=== PATIENT | male | born 1980 ===

== ENCOUNTER 2020-01-22 20:51 | Outpatient (REF) | payer OTHER, SELFPAY ==
[2020-01-22 21:28] LABS: COVID-19 Test Negative (Negative); IDNOW Serial# 9DD0AD1C
== END 2020-01-22 20:52 | disposition home or self-care (01) ==
LOC: HO.EMPCOV 20:51
PROVIDERS: Visit Provider Internal Medicine
DX: Z20.828 Contact with and (suspected) exposure to other viral communicable diseases (principal)
CPT/HCPCS: 87635

== ENCOUNTER 2020-01-26 22:35 | Outpatient (REF) | payer OTHER, SELFPAY ==
[2020-01-26 23:17] LABS: COVID-19 Test Positive (Negative)
== END 2020-01-26 22:36 | disposition home or self-care (01) ==
LOC: HO.EMPCOV 22:35
PROVIDERS: Visit Provider Internal Medicine
DX: Z20.828 Contact with and (suspected) exposure to other viral communicable diseases (principal)
CPT/HCPCS: 87635

== ENCOUNTER 2020-05-08 15:26 | Outpatient (REF) | payer OTHER, SELFPAY ==
--- NOTE | ~2020-05-08 | XR_ITS ---
EXAMINATION: XR LUMBOSACRAL SPINE CLINICAL INFORMATION: Lower back pain COMPARISON: None TECHNIQUE: Three views of the lumbosacral spine. FINDINGS: No fracture or subluxation. Vertebral body height and alignment is maintained. Disc spaces are maintained. The sacroiliac joints are symmetric. The sacrum appears intact. The visualized bowel gas pattern is unremarkable. XR/XR lumbar spine 2-3V IMPRESSION: Normal appearance of the lumbar spine.
== END 2020-05-08 15:27 | disposition home or self-care (01) ==
LOC: HO.HMGCX 15:26
PROVIDERS: PCP Internal Medicine; Visit Provider Internal Medicine
DX: M54.5 Low back pain (principal); F41.9 Anxiety disorder, unspecified
CPT/HCPCS: 72100

== ENCOUNTER 2021-06-12 11:43 | Outpatient (REF) | payer OTHER, SELFPAY ==
[2021-06-12 13:49] LABS: Hematocrit 43.3 % (42.0-52.0); Hemoglobin 14.3 g/dl (14.0-18.0); Mean Corpuscular Hemoglobin 29.8 pg (27.0-33.0); Mean Corpuscular Volume 90.2 fL (80.0-98.0); Mean Platelet Volume 9.4 fL (9.4-12.4); Platelet Count 260 X10*3/uL (160-400); Red Cell Distribution Width 12.8 % (11.0-16.0); White Blood Count 6.4 X10*3/uL (4.8-10.8)
[2021-06-12 13:57] LABS: Alanine Aminotransferase 17 U/L (0-40); Albumin Level 4.3 g/dL (3.5-5.0); Alkaline Phosphatase 51 U/L (39-117); Anion Gap 11 (12-20); Aspartate Amino Transferase 16 U/L (5-37); Bilirubin Total 0.3 mg/dL (0.0-1.0); Blood Urea Nitrogen 25 mg/dL (9-16); Calcium 9.2 mg/dL (8.4-10.2); Carbon Dioxide 28 mmol/L (22-29); Chloride 105 mmol/L (96-108); Cholesterol 180 mg/dL; Estimated Glomerular Filt Rate > 60; Glucose Fasting 87 mg/dL (60-99); HDL Cholesterol 34 mg/dL; LDL Cholesterol Calculated 124 mg/dl; Potassium 4.3 mmol/L (3.3-5.1); Sodium 140 mmol/L (135-145); Total Protein 7.3 g/dL (6.5-8.0); Triglycerides 111 mg/dL
[2021-06-12 14:18] LABS: TSH reflex Free T4 1.39 uIU/mL (0.32-4.0)
== END 2021-06-12 11:44 | disposition home or self-care (01) ==
LOC: HO.HMGCLDS 11:43
PROVIDERS: Visit Provider Internal Medicine
DX: Z00.00 Encounter for general adult medical examination without abnormal findings (principal); K21.9 Gastro-esophageal reflux disease without esophagitis
CPT/HCPCS: 36415; 80053; 80061; 84443; 85027

== ENCOUNTER 2021-10-01 13:28 | Outpatient (REF) | payer OTHER, SELFPAY ==
[2021-10-01 16:26] LABS: Appearance Urine Cloudy; Color Urine Yellow; Glucose Urine UA Negative (Negative); Leukocyte Esterase Urine Negative (Negative); Nitrite Urine Negative (Negative); Urine Blood Negative (Negative); Urine Ketones Negative (Negative); Urine Protein Negative (Neg-Trace)
== END 2021-10-01 13:29 | disposition home or self-care (01) ==
LOC: HO.HMGCLDS 13:28
PROVIDERS: PCP Internal Medicine; Visit Provider Internal Medicine
DX: Z12.5 Encounter for screening for malignant neoplasm of prostate (principal); R35.0 Frequency of micturition
CPT/HCPCS: 36415; 81003; 84153

== ENCOUNTER 2022-10-30 09:07 | Outpatient (AMB) | payer OTHER, SELFPAY ==
--- NOTE | 2022-10-30 09:11 | A.OFFPC_ITS ---
Vital Signs 10/30/22 09:15 Height 5 ft 9 in Weight 230 lb BMI 34.0 BP 114/74 Blood Pressure Location Lt brachial Position Sitting Pulse 82 Pulse Source Pulse Oximeter Pulse Oximetry (%) 96 Oxygen Delivery Method Room Air Intake Visit Reasons: Annual PE Intake Note: Pt is here today for PE. Pt states that he has lumps on his arms that he would like to have doctor look at. Allergies Cephalosporins [CEPHALOSPORINS] Allergy (Unknown, Verified 10/30/22 09:17) Hives Medication List - Last Reconciled 10/30/22 by Audra Eid MD metronidazole 1% 1 appl topical BEDTIME omeprazole 20 mg PO DAILY Tobacco use date assessed: 10/30/22 Dental Screening Dental Screen Date: 10/30/22 Did you have a dental visit in the last 12 months?: Yes Did you have a dental problem in the last 6 months where you did not have access to dental care?: No Was dental information given to patient?: Patient has dentist HPI Annual PE HPI Details Pt presents for PE. Pt and his are expecting a baby in January. 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 [facility] Medical History Annual physical exam Anxiety Foot pain, bilateral GERD (gastroesophageal reflux disease) Lip lesion Lower back pain Multiple lipomas Sleep apnea Surgical History History of arthroscopic knee surgery Family History (Updated 10/30/22 @ 09:22 by RICH Grissom) Father HTN (hypertension) Diabetes mellitus Mother Asthma Mental health disorder Maternal Grandfather No problems noted. 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 46840 - PHQ-9 Billing: Patient declined-do not bill Source: Developed by Drs. Lee Lo, Paulette Colon, Min Chacko and colleagues, with an educational mayte from [employer]. Thrive Questionnaire Date Thrive assessed: 10/30/22 What is your living situation today?: I choose not to answer this question Within the past 12 months, did the food you bought not last and you didn't have the money to get more?: I choose not to answer this question Within the past 12 months, did you worry whether your food would run out before you got money to buy more?: I choose not to answer this question Do you have trouble paying for medicines?: I choose not to answer this question Do you have trouble getting transportation to medical appointments?: I choose not to answer this question Do you have trouble paying your heating and electricity bill?: I choose not to answer this question Do you have trouble taking care of your child, family member or friend?: I choose not to answer this question Do you have trouble with day-to-day activities such as bathing, preparing meals, shopping, managing finances, etc.?: I choose not to answer this question Are you currently unemployed and looking for a job?: I choose not to answer this question Are you interested in more education?: I choose not to answer this question Please select the resources that you would like help with: None Currently or been in a relationship where the following occur: no concerns reported AUDIT C Alcohol Use Questionnaire (AUDIT-C) 1. How often do you have a drink containing alcohol?: 2-3 times a week 2. How many drinks containing alcohol do you have on a typical day when you are drinking?: 1 or 2 3. How often do you have six or more drinks on one occasion?: Never Total Score: 3 SHELBI-7 AMB Questionnaire SHELBI-7 Date SHELBI - 7 assessed: 10/30/22 Source: Developed by Drs. Lee Lo, Paulette Colon, Min Chacko and colleagues, with an educational mayte from [employer]. SHELBI-7 Assessment Billing SHELBI-7 Assessment Tool: pt declined-do not bill Review of Systems Const All systems reviewed & are unremarkable except as noted in HPI and below Reports no additional complaints Eyes Reports no additional complaints ENT Reports no additional complaints Card Reports no additional complaints Resp Reports no additional complaints GI Reports no additional complaints Reports no additional complaints Musc Reports no additional complaints Physical exam (Primary Care) Vital Signs: Last Vital Signs Pulse 82 10/30/22 09:15 BP 114/74 10/30/22 09:15 Pulse Ox 96 10/30/22 09:15 Oxygen Delivery Method Room Air 10/30/22 09:15 BMI result Body Mass Index 34.0 Tobacco/Smoking Status: Tobacco use Status Tobacco use date assessed 10/30/22 10/30/22 09:22 Patient Tobacco Use Status Former Tobacco user (11 10/30/22 09:11 years ago) e-Cigarette/Vaping Use Former Use (1) 10/30/22 09:11 Thrive Assessment: Date of Thrive Assessment Date Thrive assessed 10/30/22 10/30/22 09:24 Currently or been in a relationship where the following occur: no concerns reported Const General: no acute distress HENMT Ears: hearing grossly normal bilaterally Face and sinus: Yes normal facial exam Eyes General: appearance normal, both eyes and all related structures Neck Neck: Yes no lymphadenopathy and Yes supple Resp Effort & Inspection: normal respiratory effort Auscultation: clear to auscultation bilaterally Cardio Rhythm: regular rhythm Heart sounds: S1 normal heart sound present and S2 normal heart sound present GI Inspection: Yes normal to inspection Palpation (GI): Soft to palpation Percussion: Yes normal to percussion Auscultation: normal bowel sounds Assessment and Plan Assessment & Plan (1) Annual physical exam: Code(s): Z00.00 - Encounter for general adult medical examination without abnormal findings Plan: Well-balanced diet regular physical activity discussed with the patient. He will return for fasting blood work Orders: Orders Complete Blood Count Auto Diff Today Z00.00 - Encounter for general adult medical examination without abnormal findings Lipid Panel Today Z00.00 - Encounter for general adult medical examination without abnormal findings Varicella IgG Antibody Today Z00.00 - Encounter for general adult medical examination without abnormal findings Mumps Virus IgG Antibody Today Z00.00 - Encounter for general adult medical examination without abnormal findings Comprehensive [place]. Panel Fast Today Z00.00 - Encounter for general adult medical examination without abnormal findings Hepatitis B Surface Antibody Today Z00.00 - Encounter for general adult medical examination without abnormal findings Rubeola IgG (Measles) Today Z00.00 - Encounter for general adult medical examination without abnormal findings Rubella IgG Antibody Today Z00.00 - Encounter for general adult medical examination without abnormal findings Coding Level of Care Code Est Pt Prev Care 40-64y(88170) Diagnoses Annual physical exam Z00.00
[2022-10-30 09:15] VITALS: BP 114/74; PULSE 82; O2SAT 96; BMI 34.0
== END 2022-10-30 09:57 | disposition home or self-care (01) ==
PROVIDERS: Visit Provider Internal Medicine
DX: Z00.00 Encounter for general adult medical examination without abnormal findings (principal)
CPT/HCPCS: 99396

== ENCOUNTER 2022-10-30 09:58 | Outpatient (REF) | payer OTHER, SELFPAY ==
[2022-10-30 13:11] LABS: MANUAL DIFF FLAG NO
[2022-10-30 13:30] LABS: Basophils Absolute Auto 0.1 X10*3/uL (0.0-0.2); Eosinophils Absolute Auto 0.2 X10*3/uL (0.0-0.4); Eosinophils Percent Auto 3.1 % (0-4); Hematocrit 43.4 % (42.0-52.0); Hemoglobin 14.4 g/dl (14.0-18.0); Imm Gran Abs Auto 0.02 X10*3/uL (0.00-0.03); Imm Gran Pct Auto 0.3 % (0.0-0.4); Lymphocytes Absolute Auto 2.2 X10*3/uL (1.2-4.9); Lymphocytes Percent Auto 35.7 % (20-40); Mean Corpuscular HGB Conc 33.2 g/dl (31.0-36.0); Mean Corpuscular Volume 90.4 fL (80.0-98.0); Mean Platelet Volume 9.7 fL (9.4-12.4); Monocytes Absolute Auto 0.5 X10*3/uL (0.1-1.2); Monocytes Percent Auto 8.5 % (2-11); Neutrophils Absolute Auto 3.2 x10*3/uL (2.0-8.3); Neutrophils Percent Auto 51.4 % (45-73); Platelet Count 277 X10*3/uL (160-400); Red Cell Distribution Width 13.3 % (11.0-16.0); White Blood Count 6.2 X10*3/uL (4.8-10.8)
[2022-11-02 03:50] LABS: HBS Num1 > 1000.00 mIU/mL (0-7.99); ~Hepatitis B Surface Antibody REACTIVE (Nonreactive)
[2022-11-02 17:25] LABS: Rubella IgG Antibody 3.35 Index
== END 2022-10-30 09:59 | disposition home or self-care (01) ==
LOC: HO.HMGCLDS 09:58
PROVIDERS: PCP Internal Medicine; Visit Provider Internal Medicine
DX: Z00.00 Encounter for general adult medical examination without abnormal findings (principal); K21.9 Gastro-esophageal reflux disease without esophagitis
CPT/HCPCS: 36415; 85025; 86706; 86735; 86762; 86765; 86787

== ENCOUNTER 2022-11-02 07:04 | Outpatient (REF) | payer OTHER, SELFPAY ==
[2022-11-02 08:24] LABS: Alanine Aminotransferase 28 U/L (0-40); Albumin Level 4.6 g/dL (3.5-5.0); Alkaline Phosphatase 50 U/L (39-117); Anion Gap 16 (12-20); Aspartate Amino Transferase 20 U/L (5-37); Bilirubin Total 0.4 mg/dL (0.0-1.0); Blood Urea Nitrogen 21 mg/dL (9-16); Calcium 10.1 mg/dL (8.4-10.2); Carbon Dioxide 27 mmol/L (22-29); Chloride 103 mmol/L (96-108); Cholesterol 185 mg/dL (<200); Estimated Glomerular Filt Rate > 60; Glucose Random 86 mg/dL (60-115); HDL Cholesterol 39 mg/dL (>40); LDL Cholesterol Calculated 114 mg/dL (<100); Sodium 142 mmol/L (135-145); Total Protein 7.8 g/dL (6.5-8.0); Triglycerides 163 mg/dL (<150)
== END 2022-11-02 07:05 | disposition home or self-care (01) ==
LOC: HO.LAB 07:04
PROVIDERS: PCP Internal Medicine; Visit Provider Internal Medicine
DX: Z00.00 Encounter for general adult medical examination without abnormal findings (principal); Z13.6 Encounter for screening for cardiovascular disorders
CPT/HCPCS: 36415; 80053; 80061

== ENCOUNTER 2023-08-31 12:38 | Outpatient (AMB) | payer OTHER, SELFPAY ==
--- NOTE | 2023-08-31 12:42 | MHC.PC.OV ---
Vital Signs 08/31/23 12:50 Height 5 ft 9 in Weight 228 lb BMI 33.7 BP 110/74 Blood Pressure Location Rt brachial Position Sitting Pulse 69 Pulse Source Pulse Oximeter Pulse Oximetry (%) 98 Oxygen Delivery Method Room Air Intake Visit Reasons: Lipomas Intake Note: Pt is here today for a sick visit. Pt c/o 2 new lipomas on his arms. Allergies Cephalosporins [CEPHALOSPORINS] Allergy (Unknown, Verified 08/31/23 12:53) Hives Medication List - Last Reconciled 08/31/23 by Audra Eid MD metronidazole 1% 1 appl topical BEDTIME multivitamin 1 tab PO DAILY omeprazole 20 mg PO DAILY Tobacco use date assessed: 08/31/23 Dental Screening Dental Screen Date: 08/31/23 Did you have a dental visit in the last 12 months?: Yes Did you have a dental problem in the last 6 months where you did not have access to dental care?: No Was dental information given to patient?: Patient has dentist HPI Lipomas HPI Details Patient presents complaining of noticing new lipomas on his forearms. He has multiple lipomas on his abdomen, back over the rib area. Some of them are tender to the touch but there is not significant increase in size. [facility] Medical History (Updated 08/31/23 @ 13:53 by Audra Eid MD) GERD (gastroesophageal reflux disease) Lip lesion Anxiety Lower back pain Annual physical exam Foot pain, bilateral Multiple lipomas Sleep apnea Surgical History History of arthroscopic knee surgery Family History Father HTN (hypertension) Diabetes mellitus Mother Asthma Mental health disorder Maternal Grandfather No problems noted. 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 1. Little interest or pleasure in doing things: not at all 2. Feeling down, depressed, or hopeless: not at all 3. Trouble falling or staying asleep, or sleeping too much: several days 4. Feeling tired or having little energy: several days 5. Poor appetite or overeating: several days 6. Feeling bad about yourself - or that you are a failure or have let yourself or your family down: not at all 7. Trouble concentrating on things, such as reading the newspaper or watching television: not at all 8. Moving or speaking so slowly that other people could have noticed. Or the opposite - being so fidgety or restless that you have been moving around a lot more than usual: several days 9. Thoughts that you would be better off or of hurting yourself in some way: not at all Total score: 4 Depression Screening Interpretation: Negative Depression Screening Done: Yes Source: Developed by Drs. Lee Lo, Paulette Colon, Min Chacko and colleagues, with an educational mayte from [employer] Thrive Questionnaire Date Thrive assessed: 08/31/23 I am a: Patient What is your living situation today?: I have a steady place to live Within the past 12 months, did the food you bought not last and you didn't have the money to get more?: Never true Within the past 12 months, did you worry whether your food would run out before you got money to buy more?: Never true Do you have trouble paying for medicines?: No Do you have trouble getting transportation to medical appointments?: No Do you have trouble paying your heating and electricity bill?: No Do you have trouble taking care of your child, family member or friend?: No Do you have trouble with day-to-day activities such as bathing, preparing meals, shopping, managing finances, etc.?: No Are you currently unemployed and looking for a job?: No Are you interested in more education?: Yes Please select the resources that you would like help with: Housing/Care Home Currently or been in a relationship where the following occur: No concerns reported THRIVE Score: 0 AUDIT C Alcohol Use Questionnaire (AUDIT-C) 1. How often do you have a drink containing alcohol?: 2-3 times a week 2. How many drinks containing alcohol do you have on a typical day when you are drinking?: 1 or 2 3. How often do you have six or more drinks on one occasion?: Never Total Score: 3 SHELBI-7 AMB Questionnaire SHELBI-7 Date SHELBI - 7 assessed: 08/31/23 Feeling nervous, anxious, or on edge: 2 = More than half the days Not being able to stop or control worryin = Not at all Worrying too much about different things: 1 = Several days Trouble relaxin = More than half the days Being so restless that it is hard to sit still: 1 = Several days Becoming easily annoyed or irritable: 1 = Several days Feeling afraid as if something awful might happen: 1 = Several days Total SHELBI-7 score (0-4 normal; 5-9 mild; 10-14 moderate; 15-21 severe): 8 Source: Developed by Drs. Lee Lo, Paulette Colon, Min Chacko and colleagues, with an educational mayte from [employer]. Review of Systems Const All systems reviewed & are unremarkable except as noted in HPI and below Eyes Reports no additional complaints ENT Reports no additional complaints Card Reports no additional complaints Resp Reports no additional complaints GI Reports no additional complaints Reports no additional complaints Physical exam (Primary Care) Vital Signs: Last Vital Signs Pulse 69 08/31/23 12:50 BP 110/74 08/31/23 12:50 Pulse Ox 98 08/31/23 12:50 Oxygen Delivery Method Room Air 08/31/23 12:50 BMI result Body Mass Index 33.7 Tobacco/Smoking Status: Tobacco use Status Tobacco use date assessed 08/31/23 08/31/23 12:56 Patient Tobacco Use Status Former Tobacco user (11 08/31/23 12:43 years ago) e-Cigarette/Vaping Use Former Use (1) 08/31/23 12:43 PHQ-9: PHQ-9 Score PHQ-9: Total score 4 08/31/23 12:56 Depression Screening Interpretation: Negative Thrive Assessment: Date of Thrive Assessment Date Thrive assessed 08/31/23 08/31/23 12:43 Currently or been in a relationship where the following occur: No concerns reported Const General: no acute distress Neck Neck: Yes supple Resp Effort & Inspection: normal respiratory effort Auscultation: clear to auscultation bilaterally Cardio Rhythm: regular rhythm Heart sounds: S1 normal heart sound present and S2 normal heart sound present Skin Other: 2 about 2 cm subcutaneous lipomas on the forearms, there is multiple lipomas on the right abdominal wall mid and lower back the largest about 5 cm Assessment and Plan Assessment & Plan (1) Annual physical exam: Code(s): Z00.00 - Encounter for general adult medical examination without abnormal findings (2) Multiple lipomas: Comment: on arms and abd Code(s): D17.9 - Benign lipomatous neoplasm, unspecified Plan: Patient educated about benign condition and no available treatment unless he decides to have lipoma surgically removed. He is in a high risk for keloid formation because of a previous keloid scar on his upper chest. He would like to postpone referral to a surgeon Orders: Orders Comprehensive [place]. Panel Fast 4 Months Z00.00 - Encounter for general adult medical examination without abnormal findings Complete Blood Count Auto Diff 4 Months Z00.00 - Encounter for general adult medical examination without abnormal findings Lipid Panel 4 Months Z00.00 - Encounter for general adult medical examination without abnormal findings UA w Microscopic 4 Months Z00.00 - Encounter for general adult medical examination without abnormal findings Coding Level of Care Code Est Pt Level 3 (63638) Diagnoses Annual physical exam Z00.00 Multiple lipomas D17.9
[2023-08-31 12:50] VITALS: BP 110/74; PULSE 69; O2SAT 98; BMI 33.7
== END 2023-08-31 13:54 | disposition home or self-care (01) ==
PROVIDERS: PCP Internal Medicine; Visit Provider Internal Medicine
DX: Z00.00 Encounter for general adult medical examination without abnormal findings (principal); D17.9 Benign lipomatous neoplasm, unspecified
CPT/HCPCS: 99213

== ENCOUNTER 2023-11-09 08:58 | Outpatient (AMB) | payer OTHER, SELFPAY ==
[2023-11-09 08:58] VITALS: BP 126/78; PULSE 83; O2SAT 99; BMI 34.3
--- NOTE | 2023-11-09 08:58 | MHC.PC.OV ---
Vital Signs 11/09/23 08:58 Height 5 ft 9 in Weight 232 lb BMI 34.3 BP 126/78 Blood Pressure Location Lt brachial Position Sitting Pulse 83 Pulse Source Pulse Oximeter Pulse Oximetry (%) 99 Oxygen Delivery Method Room Air Intake Visit Reasons: Annual PE Intake Note: Pt is here today for PE. Allergies Cephalosporins [CEPHALOSPORINS] Allergy (Unknown, Verified 11/09/23 09:00) Hives Medication List - Last Reconciled 11/09/23 by Audra Eid MD metronidazole 1% 1 appl topical BEDTIME multivitamin 1 tab PO DAILY omeprazole 20 mg PO DAILY Tobacco use date assessed: 11/09/23 Dental Screening Dental Screen Date: 08/31/23 HPI Annual PE HPI Details Pt presents for PE. [facility] Medical History GERD (gastroesophageal reflux disease) Lip lesion Anxiety Lower back pain Annual physical exam Foot pain, bilateral Multiple lipomas Sleep apnea Surgical History History of arthroscopic knee surgery Family History Father HTN (hypertension) Diabetes mellitus Mother Asthma Mental health disorder Maternal Grandfather No problems noted. 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 How often do you have a drink containing alcohol?: 2-3 times a week 2. How many drinks containing alcohol do you have on a typical day when you are drinking?: 1 or 2 3. How often do you have six or more drinks on one occasion?: Never Total Score: 3 SHELBI-7 AMB Questionnaire SHELBI-7 Date SHELBI - 7 assessed: 08/31/23 Source: Developed by Drs. Lee Lo, Paulette Colon, Min Chacko and colleagues, with an educational mayte from [employer]. Review of Systems Const All systems reviewed & are unremarkable except as noted in HPI and below Reports no additional complaints Eyes Reports no additional complaints ENT Reports no additional complaints Card Reports no additional complaints Resp Reports no additional complaints GI Reports no additional complaints Reports no additional complaints Musc Reports no additional complaints Neuro Reports no additional complaints Physical exam (Primary Care) Vital Signs: Last Vital Signs Pulse 83 11/09/23 08:58 BP 126/78 11/09/23 08:58 Pulse Ox 99 11/09/23 08:58 Oxygen Delivery Method Room Air 11/09/23 08:58 BMI result Body Mass Index 34.3 Tobacco/Smoking Status: Tobacco use Status Tobacco use date assessed 11/09/23 11/09/23 09:05 Patient Tobacco Use Status Former Tobacco user (11 11/09/23 09:01 years ago) e-Cigarette/Vaping Use Former Use (1) 11/09/23 09:01 Thrive Assessment: Date of Thrive Assessment Date Thrive assessed 08/31/23 11/09/23 09:01 Const General: no acute distress HENMT Head: Yes normal to inspection Ears: hearing grossly normal bilaterally Face and sinus: Yes normal facial exam Throat: Yes posterior oropharynx normal Eyes General: appearance normal, both eyes and all related structures Neck Neck: Yes no lymphadenopathy and Yes supple Resp Effort & Inspection: normal respiratory effort Auscultation: clear to auscultation bilaterally Cardio Rhythm: regular rhythm Heart sounds: S1 normal heart sound present and S2 normal heart sound present GI Inspection: Yes normal to inspection Palpation (GI): Soft to palpation Percussion: Yes normal to percussion Auscultation: normal bowel sounds Coding Level of Care Code Est Pt Prev Care 40-64y(80617) Diagnoses Testicle swelling N50.89 Annual physical exam Z00.00 Assessment & Plan Assessment & Plan (1) Testicle swelling: Comment: R testicle Code(s): N50.89 - Other specified disorders of the male genital organs Category: Medical Plan: Obtain scrotum ultrasound to follow-up on right testicle swelling (2) Annual physical exam: Code(s): Z00.00 - Encounter for general adult medical examination without abnormal findings Category: Medical Plan: Well-balanced diet regular physical activity weight loss discussed with the patient. Orders: Orders US scrotum Today N50.89 - Other specified disorders of the male genital organs Comprehensive [place]. Panel Fast 1 Year Z00.00 - Encounter for general adult medical examination without abnormal findings Lipid Panel 1 Year Z00.00 - Encounter for general adult medical examination without abnormal findings Complete Blood Count Auto Diff 1 Year Z00.00 - Encounter for general adult medical examination without abnormal findings UA w Microscopic 1 Year Z00.00 - Encounter for general adult medical examination without abnormal findings
== END 2023-11-09 09:37 | disposition home or self-care (01) ==
PROVIDERS: PCP Internal Medicine; Visit Provider Internal Medicine
DX: N50.89 Other specified disorders of the male genital organs (principal); Z00.00 Encounter for general adult medical examination without abnormal findings

== ENCOUNTER → 2023-11-09 08:58 | Outpatient (BNVA) | payer OTHER, SELFPAY | PROVIDERS: PCP Internal Medicine; Visit Provider Internal Medicine ==

== ENCOUNTER 2023-12-16 08:03 | Outpatient (AMB) | payer OTHER, SELFPAY ==
[2023-12-16 08:09] VITALS: BP 112/76; PULSE 72; O2SAT 98; BMI 34.8
--- NOTE | 2023-12-16 08:09 | MHC.OFFWIV ---
Intake Vital Signs 12/16/23 08:09 Height 5 ft 9 in Weight 236 lb BMI 34.8 BP 112/76 Blood Pressure Location Rt brachial Position Sitting Pulse 72 Pulse Source Pulse Oximeter Pulse Oximetry (%) 98 Oxygen Delivery Method Room Air Intake Visit Reasons: EP LT ear block/earwax Patient Tobacco Use Status: Former Tobacco user (11 years ago) Allergies Cephalosporins [CEPHALOSPORINS] Allergy (Unknown, Verified 12/16/23 08:27) Hives Do you need a note to return to daycare/school/sports/work: No HPI HPI Comments History of Present Illness Details Is a 43-year-old male complaining of 3 days of left ear blockage. He tells me he has use Debrox drops twice but you will let thinks there is wax in there. He uses earplugs nightly. [facility] Medical History GERD (gastroesophageal reflux disease) Lip lesion Anxiety Lower back pain Annual physical exam Foot pain, bilateral Multiple lipomas Sleep apnea Surgical History History of arthroscopic knee surgery Family History Father HTN (hypertension) Diabetes mellitus Mother Asthma Mental health disorder Maternal Grandfather No problems noted. 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[place] Housing: House Alcohol intake: current Alcohol intake frequency: a few times a week Patient Tobacco Use Status: Former Tobacco user (11 years ago) e-Cigarette/Vaping Use: Former Use (1) service: No Current occupational status: employed Cognitive needs: No Hearing needs: No Vision needs: Yes Review of Systems Const All systems reviewed & are unremarkable except as noted in HPI and below Physical Exam Const General: cooperative, healthy appearing, comfortable and no acute distress Orientation/consciousness: patient oriented x3 HEENT Head: Yes normal to inspection Ears: mastoids normal, Abnormal EAC present cerumen impaction and unable to visualize TM (cerumen blockage) on the left General nose exam: Normal external nose present Face and sinus: Yes normal facial exam Resp Effort & Inspection: normal respiratory effort and able to speak in complete sentences Neuro General: patient oriented x3 Office Procedures Cerumen Removal From which ear canal was the cerumen removed: left Removal: irrigation and otoscope w/curette Notes: patient tolerated procedure well, no complications and ear canal clear [id number] Irrigation/Lavage Assessment & Plan Assessment & Plan (1) Impacted cerumen of left ear: Code(s): H61.22 - Impacted cerumen, left ear Plan: Earwax removed easily, ear canal clear, patient has hearing and pain improved dramatically. Plan See above Coding Level of Care Code Est Pt Level 4 (36519) Diagnoses Impacted cerumen of left ear H61.22 CPT Codes Office Procedure - CPT: 82924-Xtb Irrigation/Lavage ([id number])
== END 2023-12-16 08:50 | disposition home or self-care (01) ==
PROVIDERS: PCP Internal Medicine; Visit Provider Physician Assistant
DX: H61.22 Impacted cerumen, left ear (principal)

== ENCOUNTER → 2023-12-16 08:03 | Outpatient (BNVA) | payer OTHER, SELFPAY | PROVIDERS: PCP Internal Medicine; Visit Provider Physician Assistant | DX: H61.22 Impacted cerumen, left ear (principal) | CPT/HCPCS: 69210 ==

== ENCOUNTER 2023-12-20 11:30 | Outpatient (REF) | payer OTHER, SELFPAY | END 2023-12-20 11:31 | disposition home or self-care (01) | LOC: HO.HMGCX 11:30 | PROVIDERS: PCP Internal Medicine; Visit Provider Internal Medicine | DX: N50.89 Other specified disorders of the male genital organs (principal) | CPT/HCPCS: 76870 ==

== ENCOUNTER 2024-08-24 15:32 | Outpatient (REF) | payer OTHER, SELFPAY | END 2024-08-24 15:33 | disposition home or self-care (01) | LOC: HO.LAB 15:32 | PROVIDERS: PCP Internal Medicine | DX: Z13.89 Encounter for screening for other disorder (principal) ==

== ENCOUNTER 2024-08-24 15:32 | Outpatient (AMB) | payer OTHER, SELFPAY ==
[2024-08-24 15:44] VITALS: BP 126/62; PULSE 80; TEMP 36.8; O2SAT 97; BMI 34.7
--- NOTE | 2024-08-24 15:44 | AM.OFFWIN_ITS ---
Intake Vital Signs 08/24/24 15:44 Height 5 ft 9 in Weight 235 lb BMI 34.7 BP 126/62 Blood Pressure Location Rt brachial Position Sitting Pulse 80 Pulse Source Pulse Oximeter Temp 98.3 F Temp Source Oral Pulse Oximetry (%) 97 Oxygen Delivery Method Room Air Intake Visit Reasons: EP sore throat, fever, cough Intake Note: presents with sore throat, pain with swallowing, fever in first 24 hrs, dry cough, sinus congestion, mild bilateral ear painy[yy[[y[y[[yy for 2 days Patient Tobacco Use Status: Former Tobacco user (11 years ago) Allergies Cephalosporins (CEPHALOSPORINS) Allergy (Unknown, Verified 08/24/24 15:47) Hives Do you need a note to return to daycare/school/sports/work: Yes HPI HPI Comments History of Present Illness Details 44 y/o Male patient who presents to the walk in clinic with c/o URI symptoms. C/o Sore-throat, Pain with swallowing, dry cough, Sinus Congestion and B/L Ear Pains for 3 days now. Reports subjective fevers and body chills. and his Young Son with similar symptoms at home. He took Home COVID Test 3 days ago which was negative. [facility] Medical History (Updated 08/24/24 @ 16:21 by Cleo Rodríguez NP) Acute respiratory disease Acute pharyngitis GERD (gastroesophageal reflux disease) Lip lesion Anxiety Lower back pain Annual physical exam Foot pain, bilateral Multiple lipomas Sleep apnea Surgical History History of arthroscopic knee surgery Family History Father HTN (hypertension) Diabetes mellitus Mother Asthma Mental health disorder Maternal Grandfather No problems noted. 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[employer] [facility] Housing: House Alcohol intake: current Alcohol intake frequency: a few times a week Patient Tobacco Use Status: Former Tobacco user (11 years ago) e-Cigarette/Vaping Use: Former Use (1) service: No Current occupational status: employed Cognitive needs: No Hearing needs: No Vision needs: Yes Review of Systems Const All systems reviewed & are unremarkable except as noted in HPI and below Physical Exam Vital Signs: Last Vital Signs Temp 98.3 F 08/24/24 15:44 Pulse 80 08/24/24 15:44 BP 126/62 08/24/24 15:44 Pulse Ox 97 08/24/24 15:44 Oxygen Delivery Method Room Air 08/24/24 15:44 BMI result Body Mass Index 34.7 Const General: no acute distress Nutritional Appearance: overweight Orientation/consciousness: patient oriented x3 HEENT Head: Yes normocephalic Ears: external ears normal and TM abnormal with fluid behind the TM bilateral General nose exam: Abnormal mucous membranes and turbinates present boggy and erythematous and Nasal discharge present Face and sinus: Yes sinuses nontender Mouth: moist mucous membranes Throat: Yes uvula midline Resp Effort & Inspection: normal respiratory effort Auscultation: clear to auscultation bilaterally Cardio Heart sounds: S1 normal heart sound present and S2 normal heart sound present Neuro General: patient oriented x3 Assessment & Plan Assessment & Plan (1) Acute pharyngitis: Code(s): J02.9 - Acute pharyngitis, unspecified Qualifiers: Pharyngitis/tonsillitis etiology: unspecified etiology Qualified Code(s): J02.9 - Acute pharyngitis, unspecified Plan: Ordered Throat culture Rapid Strep Negative OTC remedies for symptom relief (2) Acute respiratory disease: Code(s): J06.9 - Acute upper respiratory infection, unspecified Plan: Ordered SARs Acetaminophen for body aches Orders: Orders Throat Culture Today J02.9 - Acute pharyngitis, unspecified AMB Rapid Strep Screen Today J02.9 - Acute pharyngitis, unspecified SARS-CoV2/FLU/RSV Today J06.9 - Acute upper respiratory infection, unspecified Coding Level of Care Code Est Pt Level 4 (64386) Diagnoses Acute pharyngitis, unspecified etiology J02.9 Pharyngitis/tonsillitis etiology: unspecified etiology Acute respiratory disease J06.9 Time Spent (min) 20
--- OUTSIDE RECORDS SUMMARY | 2024-08-24 16:06 | XMS_ITS | Patient Health Record ---
Author Organization [facility] Address [address] [place] [address] Care Team Providers Care Overlock Sleeve Setter Name Role Phone Audra Eid MD Primary Care Provider Remigio Vaca Unavailable [phone] Allergies Allergen (clinical drug ingredient) Drug/Non Drug Allergy documented on EMR Reaction Allergy Type Onset Date Status Medicinal cephalosporin and acting as antibacterial agent (FN) Cephalosporins hives,fever Drug Allergy Active Reason For Referral No Information Medications Medication SIG (Take, Route, Fr equency, Duration) Notes Start Date End Date Status metroNIDAZOLE 1 % 1 application 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 Yes Points 0 Interpretation Negative Tobacco use other than smoking: Question Answer Notes Are you an other tobacco user? No Plan Of Treatment No Information Insurance Providers Payer Name Payer Address Payer Phone Subscriber Number Group Number Insured Name Patient Relationship to Insured Coverage Start Date Coverage End Date Blue Benefits [address] [address] [place] [address] [id number] Jack Burris Self - patient is the insured Medical (General) History Medical History History ICD Code Anxiety Back pain Sleep apnea multiple lipomas Angina Covid-19 Headaches/Migraines Rosacea Surgical History Surgery Date(Month/Year) knee arthroscopy
== END 2024-08-24 16:37 | disposition home or self-care (01) ==
PROVIDERS: PCP Internal Medicine; Visit Provider Nurse Practitioner Family
DX: J02.9 Acute pharyngitis, unspecified (principal); J06.9 Acute upper respiratory infection, unspecified

== ENCOUNTER 2024-08-25 10:25 | Outpatient (REF) | payer OTHER, SELFPAY ==
--- OUTSIDE RECORDS SUMMARY | 2024-08-25 10:49 | XMS_ITS | Patient Health Record ---
Author Organization [facility] Address [address] [place] [address] Care Team Providers Care Export Traffic Department Manager Name Role Phone Audra Eid MD Primary Care Provider Remigio Vaca Unavailable [phone] Allergies Allergen (clinical drug ingredient) Drug/Non Drug Allergy documented on EMR Reaction Allergy Type Onset Date Status Medicinal cephalosporin and acting as antibacterial agent (FN) Cephalosporins hives,fever Drug Allergy Active Reason For Referral No Information Medications Medication SIG (Take, Route, Fr equency, Duration) Notes Start Date End Date Status metroNIDAZOLE 1 % 1 application Officer Captain ally Once a day Active Immunizations Vaccine [...] Coverage End Date Blue Benefits [address] [address] [place] [address] [id number] Jack Burris Self - patient is the insured Medical (General) History Medical History History ICD Code Anxiety Back pain Sleep apnea multiple lipomas Angina Covid-19 Headaches/Migraines Rosacea Surgical History Surgery Date(Month/Year) knee arthroscopy
[2024-08-25 11:23] LABS: Resp Syncy Virus RNA Qual PCR NEGATIVE (Negative); SARS COV2 PCR INHOUSE NEGATIVE (Negative)
== END 2024-08-25 10:26 | disposition home or self-care (01) ==
LOC: HO.LNP 10:25
PROVIDERS: Visit Provider Nurse Practitioner Family
DX: J02.9 Acute pharyngitis, unspecified (principal)
CPT/HCPCS: 87070; 87147; 87637

== ENCOUNTER → 2024-08-25 13:27 | Outpatient (BNV) | payer OTHER, SELFPAY | PROVIDERS: PCP Internal Medicine; Visit Provider Nurse Practitioner Family | DX: J02.9 Acute pharyngitis, unspecified (principal) ==

== ENCOUNTER 2024-11-14 13:16 | Outpatient (AMB) | payer OTHER, SELFPAY ==
[2024-11-14 13:21] VITALS: BP 118/76; PULSE 89; RESP 18; TEMP 36.6; O2SAT 97; BMI 34.7
--- NOTE | 2024-11-14 13:21 | MHC.PC.OV ---
Vital Signs 11/14/24 13:21 Height 5 ft 9 in Weight 235 lb BMI 34.7 BP 118/76 Blood Pressure Location Lt brachial Position Sitting Respiration 18 Pulse 89 Pulse Source Pulse Oximeter Temp 97.8 F Temp Source Oral Pulse Oximetry (%) 97 Oxygen Delivery Method Room Air Intake Visit Reasons: Annual visit Intake Note: Pt is here today for PE. Allergies Cephalosporins (CEPHALOSPORINS) Allergy (Unknown, Verified 11/14/24 13:21) Hives Tobacco use date assessed: 11/14/24 Dental Screening Dental Screen Date: 11/14/24 Did you have a dental visit in the last 12 months?: Yes Did you have a dental problem in the last 6 months where you did not have access to dental care?: No Was dental information given to patient?: Patient has dentist HPI Annual visit HPI Details Pt presents for PE. Pt had 2 episodes of palpitations and feeling irregular pulse lasting 30 seconds 1 month ago while under lot of stress. Patient denies associated symptoms SOB, CP lightheadedness loss of consciousness. 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 He has been under lot of stress because of his 's depression. Patient does not exercise regularly and has not been eating healthy diet. [facility] Medical History Acute respiratory disease Acute pharyngitis GERD (gastroesophageal reflux disease) Lip lesion Anxiety Lower back pain Annual physical exam Foot pain, bilateral Multiple lipomas Sleep apnea Surgical History History of arthroscopic knee surgery Family History (Reviewed 11/14/24 @ 13:29 by Marlen Brown [facility]) Father HTN (hypertension) Diabetes mellitus Mother Asthma Mental health disorder Maternal Grandfather No problems noted. 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 1. Little interest or pleasure in doing things: not at all 2. Feeling down, depressed, or hopeless: not at all 3. Trouble falling or staying asleep, or sleeping too much: several days 4. Feeling tired or having little energy: several days 5. Poor appetite or overeating: several days 6. Feeling bad about yourself - or that you are a failure or have let yourself or your family down: not at all 7. Trouble concentrating on things, such as reading the newspaper or watching television: several days 8. Moving or speaking so slowly that other people could have noticed. Or the opposite - being so fidgety or restless that you have been moving around a lot more than usual: more than half the days 9. Thoughts that you would be better off or of hurting yourself in some way: not at all Total score: 6 Depression Screening Interpretation: Negative Depression Screening Done: Yes 35133 - PHQ-9 Billing: Yes Source: Developed by Drs. Lee Lo, Paulette Colon, Min Chacko and colleagues, with an educational mayte from [employer]. Thrive Questionnaire Date Thrive assessed: 11/14/24 I am a: Patient What is your living situation today?: I have a steady place to live Within the past 12 months, did the food you bought not last and you didn't have the money to get more?: I choose not to answer this question Within the past 12 months, did you worry whether your food would run out before you got money to buy more?: I choose not to answer this question Do you have trouble paying for medicines?: I choose not to answer this question Do you have trouble getting transportation to medical appointments?: No Do you have trouble paying your heating and electricity bill?: I choose not to answer this question Do you have trouble taking care of your child, family member or friend?: No Do you have trouble with day-to-day activities such as bathing, preparing meals, shopping, managing finances, etc.?: No Are you currently unemployed and looking for a job?: No Are you interested in more education?: Yes Please select the resources that you would like help with: None Currently or been in a relationship where the following occur: No concerns reported THRIVE Score: 0 AUDIT C Alcohol Use Questionnaire (AUDIT-C) 1. How often do you have a drink containing alcohol?: 2-4 times a month 2. How many drinks containing alcohol do you have on a typical day when you are drinking?: 1 or 2 3. How often do you have six or more drinks on one occasion?: Never Total Score: 2 SHELBI-7 AMB Questionnaire SHELBI-7 Date SHELBI - 7 assessed: 11/14/24 Feeling nervous, anxious, or on edge: 1 = Several days Not being able to stop or control worryin = Several days Worrying too much about different things: 1 = Several days Trouble relaxin = More than half the days Being so restless that it is hard to sit still: 3 = Nearly every day Becoming easily annoyed or irritable: 1 = Several days Feeling afraid as if something awful might happen: 1 = Several days Total SHELBI-7 score (0-4 normal; 5-9 mild; 10-14 moderate; 15-21 severe): 10 Source: Developed by Drs. Lee Lo, Paulette Colon, Min Chacko and colleagues, with an educational mayte from [employer]. SHELBI-7 Assessment Billing SHELBI-7 Assessment Tool: SHELBI-7 Assessment 49072 Review of Systems Const All systems reviewed & are unremarkable except as noted in HPI and below Eyes Reports no additional complaints ENT Reports no additional complaints Card Reports no additional complaints Resp Reports no additional complaints GI Reports no additional complaints Reports no additional complaints Physical exam (Primary Care) Vital Signs: Last Vital Signs Temp 97.8 F 11/14/24 13:21 Pulse 89 11/14/24 13:21 Resp 18 11/14/24 13:21 BP 118/76 11/14/24 13:21 Pulse Ox 97 11/14/24 13:21 Oxygen Delivery Method Room Air 11/14/24 13:21 BMI result Body Mass Index 34.7 Tobacco/Smoking Status: Tobacco use Status Tobacco use date assessed 11/14/24 11/14/24 13:31 Patient Tobacco Use Status Former Tobacco user (11 11/14/24 13:31 years ago) e-Cigarette/Vaping Use Former Use (1) 11/14/24 13:31 PHQ-9: PHQ-9 Score PHQ-9: Total score 6 11/14/24 13:31 Depression Screening Interpretation: Negative Thrive Assessment: Date of Thrive Assessment Date Thrive assessed 11/14/24 11/14/24 13:31 Currently or been in a relationship where the following occur: No concerns reported Const General: no acute distress HENMT Head: Yes normal to inspection Ears: hearing grossly normal bilaterally Face and sinus: Yes normal facial exam Mouth: Normal oral and palatal mucosa present Throat: Yes posterior oropharynx normal Eyes General: appearance normal, both eyes and all related structures Neck Neck: Yes no lymphadenopathy and Yes supple Resp Effort & Inspection: normal respiratory effort Auscultation: clear to auscultation bilaterally Cardio Rhythm: regular rhythm Heart sounds: S1 normal heart sound present and S2 normal heart sound present GI Inspection: Yes normal to inspection Palpation (GI): Soft to palpation Percussion: Yes normal to percussion Auscultation: normal bowel sounds Coding Level of Care Code Est Pt Prev Care 40-64y(56124) Diagnoses Annual physical exam Z00.00 Palpitations R00.2 Additional Codes SHELBI-7 Assessment Billing - SHELBI-7 Assessment Tool: SHELBI-7 Assessment 83580 ([id number]) PHQ-9 - 32222 - PHQ-9 Billing: Yes ([id number]) Assessment & Plan Assessment & Plan (1) Annual physical exam: Code(s): Z00.00 - Encounter for general adult medical examination without abnormal findings Category: Medical Plan: Well-balanced diet regular physical activity weight loss discussed with the patient. Patient will have a fasting blood work at [facility]. Cologuard will be checked for colon cancer screening (2) Palpitations: Code(s): R00.2 - Palpitations Category: Medical Plan: EKG showed normal sinus rhythm no ST-T changes. Patient was advised to decrease caffeine intake start regular physical activity maintain good hydration and stress management. He will try to monitor his heart rate by [employer] monitor when symptomatic Orders: Orders Comprehensive [place]. Panel Fast Today F41.9 - Anxiety disorder, unspecified, Z00.00 - Encounter for general adult medical examination without abnormal findings Complete Blood Count Auto Diff Today F41.9 - Anxiety disorder, unspecified, Z00.00 - Encounter for general adult medical examination without abnormal findings Lipid Panel Today F41.9 - Anxiety disorder, unspecified, Z00.00 - Encounter for general adult medical examination without abnormal findings TSH reflex Free T4 Today F41.9 - Anxiety disorder, unspecified, Z00.00 - Encounter for general adult medical examination without abnormal findings Vitamin D 25-OH Total Today F41.9 - Anxiety disorder, unspecified, Z00.00 - Encounter for general adult medical examination without abnormal findings UA w Microscopic Today F4.9 - Anxiety disorder, unspecified, Z00.00 - Encounter for general adult medical examination without abnormal findings Magnesium Today F41.9 - Anxiety disorder, unspecified, Z00.00 - Encounter for general adult medical examination without abnormal findings Referrals Cologuard Test Z12.11 - Encounter for screening for malignant neoplasm of colon, Z12.12 - Encounter for screening for malignant neoplasm of rectum
--- OUTSIDE RECORDS SUMMARY | 2024-11-14 16:16 | XMS_ITS | Patient Health Record ---
Author Organization [facility] Address [address] [place] [address] Care Team Providers Care Mainspring Former Brace End Name Role Phone Audra Eid MD Primary Care Provider Remigio Vaca Unavailable [phone] Allergies Allergen (clinical drug ingredient) Drug/Non Drug Allergy documented on EMR Reaction Allergy Type Onset Date Status Medicinal cephalosporin and acting as antibacterial agent (FN) Cephalosporins hives,fever Drug Allergy Active Reason For Referral No Information Medications Medication SIG (Take, Route, Fr equency, Duration) Notes Start Date End Date Status metroNIDAZOLE 1 % 1 application 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
== END 2024-11-14 14:53 | disposition home or self-care (01) ==
LOC: HO.HMCC 13:17
PROVIDERS: PCP Internal Medicine; Visit Provider Internal Medicine
DX: Z00.00 Encounter for general adult medical examination without abnormal findings (principal); R00.2 Palpitations

== ENCOUNTER → 2024-11-14 13:16 | Outpatient (BNVA) | payer OTHER, SELFPAY | PROVIDERS: PCP Internal Medicine; Visit Provider Internal Medicine | DX: Z00.00 Encounter for general adult medical examination without abnormal findings (principal); R00.2 Palpitations; F41.9 Anxiety disorder, unspecified | CPT/HCPCS: 96127 ==